=== PATIENT | female | born 1990 | race Caucasian/White ===

== ENCOUNTER → 2018-04-03 10:44 | Outpatient (CLI) | payer BC, SELFPAY ==
[2018-04-03 11:02] LABS: Basophils % 0.5 % (0.1-2.0); Eosinophils # 0.3 K/mm3 (0.0-0.4); Eosinophils % 4.8 % (0.1-12.0); Hematocrit 41.6 % (37.0-47.0); Hemoglobin 13.5 g/dL (12.2-16.2); Lymphocytes # 2.1 K/mm3 (0.7-4.5); Lymphocytes % 35.8 % (10-50); Mean Corpuscular HGB Conc 32.5 g/dL (31.8-35.4); Mean Corpuscular Volume 89.5 fl (81-99); Mean Platelet Volume 7.3 fl (7.4-10.4); Monocytes # 0.3 K/mm3 (0.1-1.0); Monocytes % 4.3 % (1.7-9.3); Neutrophils # 3.2 K/mm3 (1.8-7.8); Neutrophils % 54.7 % (37.0-80.0); Platelet Count 277 K/mm3 (142-424); Red Blood Count 4.65 M/mm3 (4.20-5.40); Red Cell Distribution Width 13.5 % (11.5-17.5); White Blood Count 5.9 K/mm3 (4.8-10.8)
[2018-04-03 12:07] LABS: Alanine Aminotransferase 66 U/L (12-78); Albumin Level 3.8 gm/dL (3.4-5.0); Albumin/Globulin Ratio 1.2 (1.1-1.8); Alkaline Phosphatase 93 U/L (46-116); Anion Gap 14.2 mEq/L (5-15); Aspartate Amino Transferase 24 U/L (15-37); Bilirubin,Total 0.5 mg/dL (0.2-1.0); Blood Urea Nitrogen 8 mg/dL (7-18); Calcium 8.7 mg/dL (8.5-10.1); Carbon Dioxide 26 mmol/L (21.0-32.0); Chloride 104 mmol/L (98-107); Creatinine,Serum 0.59 mg/dL (0.55-1.02); Estimated Glomerular Filt Rate 122 ml/min (>60); GFR (African American) 148 ML/MIN (>60); Globulin 3.2 gm/dl (1.3-3.2); Glucose 98 mg/dL (74-106); HCG,Quantitative 0 mIU/mL; Potassium 4.2 mmoL/L (3.5-5.1); Sodium 140 mmol/L (136-145); T4 (Thyroxine) 6.3 ug/dl (4.7-13.3); Thyroid Stimulating Hormone 1.19 uIU/ml (0.358-3.740)
[2018-04-03 12:08] LABS: HCG Qualitative, Serum Negative (Negative)
== END ==
PROVIDERS: Visit Provider Nurse Practitioner Family
DX: N91.2 Amenorrhea, unspecified (principal)
CPT/HCPCS: 36415; 80053; 84436; 84443; 84702; 84703; 85025

== ENCOUNTER → 2018-04-10 10:40 | Outpatient (CLI) | payer BC, SELFPAY ==
--- NOTE | 2018-04-10 10:42 | US_ITS ---
US transvaginal HISTORY: Amenorrhea ITS.REASON: absent period ORDERING PHYSICIAN: Mark Harrison PATIENT AGE: 27 years Comparison: None FINDINGS: Uterus is 9 x 3.5 x 5 cm with a combined endometrial thickness of 1 cm. No uterine mass evident. The left ovary is 3.7 x 2.4 cm and contains a 2 cm cyst The right ovary is 3.5 x 2 cm and contains multiple small peripheral follicles. No cul-de-sac fluid evident IMPRESSION: 2 cm left ovarian cyst with polycystic appearance of the right ovary
== END ==
PROVIDERS: PCP Nurse Practitioner Family; Visit Provider Nurse Practitioner Family
DX: N91.2 Amenorrhea, unspecified (principal)
CPT/HCPCS: 76830

== ENCOUNTER → 2018-04-23 18:09 | Outpatient (CLI) | payer BC, SELFPAY ==
[2018-04-23 20:11] LABS: Amphetamine/Metha Screen,Urine Negative ng/mL (<1000); Barbiturates Screen,Urine Negative ng/mL (<200); Benzodiazepines Screen,Urine Negative ng/mL (<200); Cannabinoid Screen,Urine Negative ng/mL (<50); Cocaine Screen,Urine Negative ng/mL (<300); Methadone Screen,Urine Negative ng/mL (<300); Opiate Screen,Urine Negative ng/mL (<300); Phencyclidine Screen,Urine Negative ng/mL (<25)
== END ==
PROVIDERS: Visit Provider Nurse Practitioner Family
DX: R68.89 Other general symptoms and signs (principal); Z79.899 Other long term (current) drug therapy
CPT/HCPCS: 80305

== ENCOUNTER → 2018-05-29 14:31 | Outpatient (CLI) | payer BC, SELFPAY ==
--- NOTE | 2018-05-29 14:35 | US_ITS ---
US breast RT complete INDICATION: Right breast pain ORDERING PHYSICIAN: Sharon Oreilly PATIENT AGE: 27 years COMPARISON: None TECHNIQUE: Right breast ultrasound complete with axilla FINDINGS: There is a complex cyst at 12:00 which measures 9 x 5 mm. A 6 x 4 mm cyst is present at 1:00. There is a 6 x 6 mm cyst at 4:00 near the nipple. A 6 mm cyst is present at 10:00 near the nipple. In the retroareolar region there is a 9 x 4 mm complex cyst. Small nodes are present in the axilla. IMPRESSION: Multiple right breasts complex cystic lesions. Probably benign. Recommend 6 month sonographic follow-up or immediate follow-up any nodules that are increasing in size BI-RADS Category: 3 Probably Benign Finding Short Term Follow-up RECOMMENDED FOLLOW-UP: 6M - 6 MONTH FOLLOW-UP (A letter has been sent to the patient regarding results of the study.)
== END ==
PROVIDERS: PCP Nurse Practitioner Family; Visit Provider Nurse Practitioner Family
DX: N64.4 Mastodynia (principal); N64.52 Nipple discharge
CPT/HCPCS: 76641

== ENCOUNTER → 2018-08-04 14:11 | Outpatient (CLI) | payer BC, SELFPAY ==
[2018-08-04 14:43] LABS: Amphetamine/Metha Screen,Urine Negative ng/mL (<1000); Barbiturates Screen,Urine Negative ng/mL (<200); Benzodiazepines Screen,Urine Negative ng/mL (<200); Cannabinoid Screen,Urine Negative ng/mL (<50); Cocaine Screen,Urine Negative ng/mL (<300); Methadone Screen,Urine Negative ng/mL (<300); Opiate Screen,Urine Negative ng/mL (<300); Phencyclidine Screen,Urine Negative ng/mL (<25)
== END ==
PROVIDERS: Visit Provider Nurse Practitioner Family
DX: Z79.899 Other long term (current) drug therapy (principal)
CPT/HCPCS: 80305

== ENCOUNTER → 2018-11-11 13:27 | Outpatient (CLI) | payer BC, SELFPAY ==
--- NOTE | 2018-11-11 13:28 | US_ITS ---
PROCEDURE: US BREAST RT COMPLETE CLINICAL INDICATION: 6 mth f/u Right breast pain, right breast complex cysts COMPARISON: BREASTRT US breast RT complete from 05/29/2018 FINDINGS: Complex cyst 9 x 5 mm at 12 o'clock unchanged Complex cyst 7 x 3 mm 1 o'clock slightly larger. 6 mm cyst at 5 o'clock unchanged Ductal ectasia at 9 o'clock versus several small cysts in a row slightly more prominent 5 mm cyst at 10 o'clock unchanged. No solid nodules evident IMPRESSION: Multiple right breast cysts which are probably benign. Some have a complex appearance. Recommend continued six-month follow-up Dictated by: Phillip Burns MD 11/13/2018 16:31 Electronically signed by Phillip Burns MD in [place] 11/13/2018 16:31
== END ==
PROVIDERS: PCP Nurse Practitioner Family; Visit Provider Nurse Practitioner Family
DX: N60.11 Diffuse cystic mastopathy of right breast (principal); N64.4 Mastodynia
CPT/HCPCS: 76641

== ENCOUNTER → 2018-12-01 18:17 | Outpatient (CLI) | payer BC, SELFPAY | PROVIDERS: Visit Provider Nurse Practitioner Family | DX: N39.0 Urinary tract infection, site not specified (principal) | CPT/HCPCS: 87086 ==

== ENCOUNTER → 2019-04-14 08:54 | Outpatient (CLI) | payer BC, SELFPAY ==
--- NOTE | 2019-04-14 08:54 | US_ITS ---
PROCEDURE: US ABDOMEN COMPLETE CLINICAL INDICATION: abd pain Left-sided abdominal pain COMPARISON: No exams were available for comparison FINDINGS: PANCREAS: Unremarkable. No obvious mass or abnormal fluid collection. No ductal dilatation LIVER: No focal liver lesions demonstrated. Homogeneous echogenicity. No intrahepatic biliary ductal dilatation evident. There is appropriate direction of blood flow within a non dilated portal vein RIGHT KIDNEY: Unremarkable. Normal size and echogenicity. No hydronephrosis LEFT KIDNEY: Unremarkable. Normal size and echogenicity. No hydronephrosis GALLBLADDER: No gallstones, gallbladder wall thickening, pericholecystic fluid, or biliary dilatation. There is a small amount nonspecific sludge in the gallbladder AORTA: No evidence of aneurysmal dilatation. SPLEEN: Unremarkable. Normal size and echogenicity ASCITES: None demonstrated. IMPRESSION: Small amount of gallbladder sludge/precipitated bile of questionable clinical significance otherwise negative Dictated by: Phillip Burns MD 04/14/2019 18:15 Electronically signed by Phillip Burns MD in [facility] 04/14/2019 18:15
== END ==
PROVIDERS: PCP Nurse Practitioner Family; Visit Provider Nurse Practitioner Family
DX: R10.9 Unspecified abdominal pain (principal)
CPT/HCPCS: 76700

== ENCOUNTER → 2019-05-17 08:36 | Outpatient (CLI) | payer BC, SELFPAY ==
--- NOTE | 2019-05-17 08:36 | US_ITS ---
PROCEDURE: US BREAST RT COMPLETE CLINICAL INDICATION: 6 mth f/u Follow-up breast lesion COMPARISON: US BREAST RT COMPLETE from 11/11/2018 FINDINGS: At 12 o'clock there is a complicated cyst which measures 10 x 5 mm similar to the previous exam. There is an additional complicated cyst at 1 o'clock at 6 x 4 mm. A 5 x 3 mm cyst is present 5 o'clock. 5 x 4 mm cyst at 9 o'clock. Ductal ectasia is noted. A 5 x 4 mm cyst at 10 o'clock complicated IMPRESSION: Multiple complicated cysts with ductal ectasia. BI-RADS category 2 benign findings. Recommend 1 year follow-up Dictated by: Phillip Burns MD 05/17/2019 09:32 Electronically signed by Phillip Burns MD in [place] 05/17/2019 09:32
== END ==
PROVIDERS: PCP Nurse Practitioner Family; Visit Provider Emergency Medicine
DX: N60.01 Solitary cyst of right breast (principal)
CPT/HCPCS: 76641

== ENCOUNTER 2020-10-25 18:29 | Emergency (ER) | payer BC, SELFPAY ==
[2020-10-25 20:00] VITALS: BP 137/96; PULSE 79; RESP 18; TEMP 36.6; O2SAT 98; BMI 28.6
[2020-10-25 20:03] VITALS: BP 137/96; PULSE 79; RESP 18; TEMP 36.6
--- NOTE | 2020-10-25 20:21 | HMH.EDUTC ---
[facility] [place] Disposition Clinical Impression: Exposure to COVID-19 virus Disposition: Home, Self-Care Condition on Discharge: Good Instructions: DI for COVID-19 (Suspected or Confirmed ), Coronavirus Disease 2019, Preventing the Spread of Coronavirus Discharge Instructions Additional Instructions: *Monitor Temp, Over the counter Motrin or Tylenol as directed/as needed Tylenol every 4 hours and Motrin every 6 hours (as long as your family doctor has told you that you can take it) for fever or pain. and straight to ER if unable to lower temp less than 101.0 after medication given Follow up IMMEDIATELY for new or worsening symptoms or no Noticeable improvement over the next 48-72 hours. 911 for difficulty breathing or swallowing You were tested for today for COVID19 your test result should be back in the next 24-48 hours, you may call to the [facility] to see if your test results are back in the next 48 hours [phone] [facility] hours are 9am-9pm You was given a handout with instructions for Self Quarantine and Self isolation for while you wait on test results and what to do if they are positive If you are positive the Health Dept will be contacting you also Make sure to take your Vitamins Vit. C Vit D and Zinc if you can take them Referrals: Mark Harrison APRN [Primary Care Provider] - As needed Forms: Work/School Release Medical Decision Making - Galo Inquiry Pt receiving controlled substance: No Galo was queried for this patient: No Vital Signs: 10/25/20 20:00 10/25/20 20:03 Temperature 97.8 F 97.8 F Temperature Source Oral Pulse Rate 79 Pulse Rate [Left] 79 Respiratory Rate 18 18 Blood Pressure 137/96 H Blood Pressure [Right Arm] 137/96 H Blood Pressure Mean [Right Arm] 109 02 Sat by Pulse Oximetry 98 Orders (Tests/Meds): ORDERS Category Date Time Status Covid-19 Nasal PCR ([facility]) Routine Lab 10/25/20 19:40 Received [facility] [place] HPI - General Stated complaint: covid test Time Seen by Provider: 10/25/20 20:21 Mode of Arrival: Ambulatory Source of Information: Patient Limitations: No Limitations Description of Symptoms (Recalled from Triage Doc. by RN): pt is asymptomatic. 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 HEENT Symptoms (Recalled from RN notes): No Resp Symptoms (Recalled from RN notes): No Skin Symptoms (Recalled from RN notes): No MS Symptoms (Recalled from RN notes): No Functional Status (Recalled from RN notes): na - History of Present Illness Provider Complaint: Patient states that she was around enterprise account manager at work and she tested positive for COVID recently State that today she has had a little headache and scratchy throat and was worried and wanted to get tested Denies fever, denies SOA - Related Data Allergies Allergy/AdvReac Type Severity Reaction Status Date / Time No Known Allergies Allergy Verified 10/20/20 16:10 - Worker's Comp Is this a Worker's Comp case?: No [facility] History - Hepatitis A Screen Drug use history?: No High risk sexual behaviors?: No History of sexually transmitted infection?: No Currently employed?: No Childcare worker?: No Do you have indoor plumbing?: Yes Do you have electricity?: Yes Attestation statement:: This patient has been screened for Hepatitis A risk factors. I have reviewed the patient's past medical history: Yes Other Surgeries: Yes: Amputation: No Fractures: No - Social History Smoking Status: Former smoker Tobacco Type: cigarettes # Packs/Day (cigarettes): 1 #Yrs smoked (if former smoker): 1 Alcohol Intake: never Alcohol Intake Frequency:: other Substance Use Type: denies use Occupational Status: employed Family Hx:: Diabetes, Heart Attack, Stroke, Hypertension ROS Obtained: Yes All systems reviewed & no additional complaints, Yes Systems reviewed as appropriate & no additional complaints - Constitutional Constitutional: Reports system reviewed and no additional complaints, except as docu, Denies body ache,
== END 2020-10-25 20:25 | disposition home or self-care (01) ==
PROVIDERS: Emergency Provider Nurse Practitioner; PCP Nurse Practitioner Family
DX: Z20.822 Contact with and (suspected) exposure to COVID-19 (principal); J02.9 Acute pharyngitis, unspecified; Z87.891 Personal history of nicotine dependence
CPT/HCPCS: 99202; G0463; U0003

== ENCOUNTER → 2021-03-23 14:35 | Outpatient (CLI) | payer BC, SELFPAY | PROVIDERS: Visit Provider Nurse Practitioner | DX: U07.1 COVID-19 (principal) | CPT/HCPCS: C9803; U0003; U0005 ==

== ENCOUNTER 2021-05-24 19:27 | Emergency (ER) | payer BC, SELFPAY ==
[2021-05-24 21:15] VITALS: BP 118/76; PULSE 76; RESP 18; TEMP 36.8; O2SAT 100; BMI 29.0
[2021-05-24 21:35] LABS: Strep Scrn Group A (Rapid) Negative (Negative)
--- NOTE | 2021-05-24 21:40 | HMH.EDUTC ---
[facility] – [place] Disposition Clinical Impression: Viral upper respiratory tract infection with cough Disposition: Home, Self-Care Condition on Discharge: Good Instructions: Cough, DI for Viral Upper Respiratory Infection -- Adult, Common Cold Additional Instructions: *Monitor Temp, Over the counter Motrin or Tylenol as directed/as needed Tylenol every 4 hours and Motrin every 6 hours (as long as your family doctor has told you that you can take it) for fever or pain. and straight to ER if unable to lower temp less than 101.0 after medication given *Warm salt water gargles may help to soothe the throat *Throat Lozenges *Warm fluids like tea with honey may help to soothe the throat *Sleep elevated *Humidifier/Vaporizer Your throat swab was sent for culture. Those results are typically sent to your primary care. Be sure to follow up in 2-3 days with your family doctor/primary care physician if no improvement so they can review those result and treat if necessary. If you don?t have a primary care doctor, I recommend you get one but in the mean time, you will have to return to a walk in clinic Follow up IMMEDIATELY for new or worsening symptoms or no Noticeable improvement over the next 48-72 hours. 911 for difficulty breathing or swallowing Referrals: Mark Harrison APRN [Primary Care Provider] - As needed Time of Disposition: 21:56 Medical Decision Making - Galo Inquiry Pt receiving controlled substance: No Galo was queried for this patient: No Vital Signs: 05/24/21 21:15 Temperature 98.2 F Temperature Source Oral Pulse Rate [Right Brachial] 76 Respiratory Rate 18 Blood Pressure [Right Arm] 118/76 Blood Pressure Mean [Right Arm] 90 Blood Pressure Source [Right Arm] Automatic Cuff Blood Pressure Position [Right Arm] Sitting 02 Sat by Pulse Oximetry 100 Oxygen Delivery Method Room Air - Lab Data Lab results reviewed: Yes: I reviewed the patient's lab results. Lab Results 05/24/21 21:16: Group A Strep Rapid Negative Orders (Tests/Meds): ORDERS Category Date Time Status Strep Screen Confirmation Stat Micro 05/24/21 21:16 Received [facility] [place] HPI - General Stated complaint: SORE THROAT COUGH CONGESTION Time Seen by Provider: 05/24/21 21:40 Mode of Arrival: Ambulatory Source of Information: Patient Limitations: No Limitations Description of Symptoms (Recalled from Triage Doc. by RN): PATIENT C/O SORE THROAT AND COUGH HEENT Symptoms (Recalled from RN notes): Yes Resp Symptoms (Recalled from RN notes): Yes Skin Symptoms (Recalled from RN notes): No MS Symptoms (Recalled from RN notes): No Functional Status (Recalled from RN notes): WNL - History of Present Illness Provider Complaint: Patient state that son recently had strep throat and now she thinks she may have it State that she has been having cough and sore throat so she came in wanting to get tested for strep throat - Related Data Allergies Allergy/AdvReac Type Severity Reaction Status Date / Time No Known Allergies Allergy Verified 03/18/21 17:05 - Worker's Comp Is this a Worker's Comp case?: No [facility] History - Hepatitis A Screen Drug use history?: No High risk sexual behaviors?: No History of sexually transmitted infection?: No Currently employed?: No Childcare worker?: No Do you have indoor plumbing?: Yes Do you have electricity?: Yes Attestation statement:: This patient has been screened for Hepatitis A risk factors. I have reviewed the patient's past medical history: Yes Other Surgeries: Yes: Amputation: No Fractures: No - Social History Smoking Status: Former smoker Tobacco Type: cigarettes # Packs/Day (cigarettes): 1 #Yrs smoked (if former smoker): 1 Alcohol Intake: never Alcohol Intake Frequency:: holidays/special occasions only Substance Use Type: denies use Occupational Status: employed Family Hx:: Diabetes, Heart Attack, Stroke, Hypertension ROS Obtained: Yes All systems reviewed & no additional co
[2021-05-24 21:55] VITALS: BP 118/76; PULSE 76; RESP 18; TEMP 36.8; O2SAT 100
== END 2021-05-24 22:02 | disposition home or self-care (01) ==
PROVIDERS: Emergency Provider Nurse Practitioner; PCP Nurse Practitioner Family
DX: J06.9 Acute upper respiratory infection, unspecified (principal); Z87.891 Personal history of nicotine dependence; Z82.49 Family history of ischemic heart disease and other diseases of the circulatory system; Z83.3 Family history of diabetes mellitus
CPT/HCPCS: 87430; 99213; G0463

== ENCOUNTER → 2021-05-28 16:00 | Outpatient (CLI) | payer BC, SELFPAY ==
[2021-05-28 14:59] LABS: Basophils # 0.1 K/mm3 (0-0.2); Eosinophils # 0.2 K/mm3 (0.0-0.4); Eosinophils % 4.5 % (0.1-12.0); Hematocrit 40.4 % (37.0-47.0); Hemoglobin 13.6 g/dL (12.2-16.2); Lymphocytes # 1.9 K/mm3 (0.7-4.5); Lymphocytes % 34.9 % (10-50); Mean Corpuscular HGB Conc 33.6 g/dL (31.8-35.4); Mean Corpuscular Hemoglobin 29.9 pg (27.0-31.2); Mean Corpuscular Volume 89.2 fl (81-99); Mean Platelet Volume 8.5 fl (7.4-10.4); Monocytes # 0.2 K/mm3 (0.1-1.0); Monocytes % 3.8 % (1.7-9.3); Neutrophils % 55.7 % (37.0-80.0); Platelet Count 402 K/mm3 (142-424); Red Blood Count 4.53 M/mm3 (4.20-5.40); Red Cell Distribution Width 13.3 % (11.5-17.5); White Blood Count 5.3 K/mm3 (4.8-10.8)
[2021-05-28 16:30] LABS: Alanine Aminotransferase 17 U/L (12-78); Albumin Level 4.3 g/dl (3.5-5.0); Albumin/Globulin Ratio 1.6 (1.1-1.8); Alkaline Phosphatase 87 U/L (38-126); Anion Gap 11.5 mEq/L (5-15); Aspartate Amino Transferase 22 U/L (14-36); Bilirubin,Total 0.5 mg/dl (0.2-1.3); Blood Urea Nitrogen 15 mg/dl (7-17); Calcium 9.1 mg/dl (8.4-10.2); Carbon Dioxide 26 mmol/L (22.0-30.0); Chloride 107 mmol/L (98-107); Chol/HDL Ratio 7.1 (1-3.5); Cholesterol 178 mg/dl (140-200); Estimated Glomerular Filt Rate 117 ml/min (>60); GFR (African American) 142 ML/MIN (>60); Globulin 2.7 g/dL (1.3-3.2); Glucose 104 mg/dl (74-100); HDL Cholesterol 25 mg/dl (40-60); Potassium 4.5 mmoL/L (3.5-5.1); Sodium 140 mmol/L (136-145); Triglycerides 383 mg/dl (30-150); VLDL Cholesterol 77 mg/dL (0-40)
[2021-05-28 16:35] LABS: 25-OH Vitamin D, Total < 12.8 ng/mL (30-100)
[2021-05-28 16:42] LABS: Direct LDL Cholesterol 88.87 mg/dL (100-129)
[2021-05-28 16:48] LABS: T4 (Thyroxine) 6.5 ug/dl (5.53-11.0)
[2021-05-28 17:19] LABS: Thyroid Stimulating Hormone 0.82 uIU/mL (0.465-4.68)
== END ==
PROVIDERS: Visit Provider Nurse Practitioner Family
DX: Z00.00 Encounter for general adult medical examination without abnormal findings (principal); E66.3 Overweight; Z68.33 Body mass index [BMI] 33.0-33.9, adult
CPT/HCPCS: 80053; 80061; 82306; 84436; 84443; 85025

== ENCOUNTER → 2021-06-20 10:11 | Outpatient (CLI) | payer BC, SELFPAY | PROVIDERS: PCP Emergency Medicine; Visit Provider Nurse Practitioner Family | DX: Z01.818 Encounter for other preprocedural examination (principal); B96.20 Unspecified Escherichia coli [E. coli] as the cause of diseases classified elsewhere | CPT/HCPCS: 87086; 87088; 87186 ==

== ENCOUNTER → 2021-06-21 18:30 | Outpatient (CLI) | payer BC, SELFPAY ==
--- NOTE | 2021-06-21 18:50 | ECG_ITS ---
APPROVED REPORT Exam: Resting ECG HR:64 bpm ECG Measurements Heart Rate 64 AXES SD 163 P 46 QRSd 91 QRS 55 QT 383 T 84 QTc 392 Conclusion SINUS RHYTHM NORMAL ECG UNCONFIRMED REPORT Electronically signed by : Hamzah Vital MD 06/23/2021 12:19:45
--- NOTE | 2021-06-21 18:57 | XR_ITS ---
PROCEDURE INFORMATION: Exam: XR Chest Exam date and time: 06/21/2021 6:59 PM Age: 30 years old Clinical indication: Screening exam; Pre-operative exam; Cardiovascular screening; Additional info: Pre-op surgery. TECHNIQUE: Imaging protocol: XR of the chest. Views: 2 views. COMPARISON: CR CXR CHEST(2 VIEWS-NOT PORTABLE) 08/22/2016 4:55 PM FINDINGS: Lungs: Unremarkable. No consolidation. Pleural spaces: Unremarkable. No pleural effusion. No pneumothorax. Heart/Mediastinum: Unremarkable. No cardiomegaly. Bones/joints: Unremarkable. IMPRESSION: No acute findings.
== END ==
PROVIDERS: PCP Nurse Practitioner Family; Visit Provider Plastic Surgery
DX: Z01.818 Encounter for other preprocedural examination (principal)
CPT/HCPCS: 71046; 93005

== ENCOUNTER → 2021-06-25 08:02 | Outpatient (CLI) | payer BC, SELFPAY ==
--- NOTE | 2021-06-25 08:05 | US_ITS ---
FINAL REPORT CLINICAL HISTORY: R/O UMBILICAL HERNIA,CHECK ABD WALL preop clearance for tummy tuck FINDINGS: US ABDOMINAL LIMITED Limited sonographic images were obtained of the soft tissues at the level of the umbilicus. No hernia is visualized. IMPRESSION: No hernia visualized. If concern persists recommend CT. Reviewed, Interpreted and Dictated by Jomar Washington MD Transcribed by Brad Vicente Authenticated by Jomar Washington MD on 06/25/2021 10:31:43 AM [facility]
== END ==
PROVIDERS: PCP Nurse Practitioner Family; Visit Provider Plastic Surgery
DX: Z01.818 Encounter for other preprocedural examination (principal); K42.9 Umbilical hernia without obstruction or gangrene
CPT/HCPCS: 76705

== ENCOUNTER 2021-06-27 09:21 | Emergency (ER) | payer BC, SELFPAY ==
[2021-06-27 09:49] VITALS: BP 149/74; PULSE 67; RESP 20; TEMP 36.7; O2SAT 95; BMI 32.5
[2021-06-27 10:06] LABS: UTC Influenza A Antigen Negative (Negative); UTC Influenza B Antigen Negative (Negative)
[2021-06-27 10:33] LABS: Strep Scrn Group A (Rapid) Negative (Negative)
--- NOTE | 2021-06-27 10:52 | HMH.EDUTC ---
[facility] [place] Disposition Clinical Impression: Viral syndrome, Pharyngitis, Bronchitis Disposition: Home, Self-Care Condition on Discharge: Good Instructions: DI for Pharyngitis/Tonsillopharyngitis -- Adult, DI for Viral Syndrome Additional Instructions: Drink plenty of fluids. Take tylenol or ibuprofen for pain or fever. Take the medications as directed. Follow up with your regular doctor. GO TO THE ER FOR ANY WORSENING SYMPTOMS Prescriptions: Benzonatate [Benzonatate 100mg cap] 100 mg PO TIDP PRN #30 cap PRN Reason: Cough Transmission Status: Received by [facility] # Azithromycin [Z-Baljit 250mg Tab*] 250 mg PO UD DOSE PK #6 tab Transmission Status: Received by [facility] # Referrals: Mark Harrison APRN [Primary Care Provider] - Forms: Work/School Release Time of Disposition: 10:54 Medical Decision Making - Medical Records Medical records reviewed: No: I reviewed the patient's medical records. - Galo Inquiry Pt receiving controlled substance: No Vital Signs: 06/27/21 09:49 06/27/21 11:00 Temperature 98.0 F 98 F Temperature Source Oral Pulse Rate 67 Pulse Rate [Left] 67 Respiratory Rate 20 20 Blood Pressure 149/74 H Blood Pressure [Right Arm] 149/74 H Blood Pressure Mean [Right Arm] 99 02 Sat by Pulse Oximetry 95 - Lab Data Lab Results 06/27/21 09:44: Influenza Type A Ag Negative, Influenza Type B Ag Negative 06/27/21 09:46: Group A Strep Rapid Negative 06/27/21 11:12: Chlamy pneumoniae PCR Not detected, Adenovirus (PCR) Not detected, B. pertussis DNA (PCR) Not detected, Coronavirus OC43 (PCR) Not detected, Coronavirus HKU1 (PCR) Not detected, Coronavirus 229E (PCR) Not detected, SARS-CoV-2 (PCR) Not detected, Coronavirus NL63 (PCR) Not detected, Human Metapneumovir PCR Not detected, Influenza A (H1) PCR Not detected, Influ A (H1N1/09) PCR Not detected, Influenza A (H3) PCR Not detected, Influenza Type A (PCR) Not detected, Influenza Type B (PCR) Not detected, M. pneumoniae (PCR) Not detected, Parainfluenza 1 (PCR) Not detected, Parainfluenza 2 (PCR) Not detected, Parainfluenza 3 (PCR) Not detected, Parainfluenza 4 (PCR) Not detected, RSV (PCR) Not detected, Entero/Rhino (PCR) Not detected Orders (Tests/Meds): ORDERS Category Date Time Status Strep Screen Confirmation Stat Micro 06/27/21 09:46 Received [facility] [place] HPI - General Stated complaint: cough,sore throat Time Seen by Provider: 06/27/21 10:00 Mode of Arrival: Ambulatory Source of Information: Patient Limitations: No Limitations Description of Symptoms (Recalled from Triage Doc. by RN): pt c/o cough and sore throat that started 3 days ago. pt states that she has had no known sick contacts. HEENT Symptoms (Recalled from RN notes): Yes Resp Symptoms (Recalled from RN notes): Yes Skin Symptoms (Recalled from RN notes): No MS Symptoms (Recalled from RN notes): No Functional Status (Recalled from RN notes): wnl - History of Present Illness Provider Complaint: She c/o sore throat and malaise for the past 2 days. - Related Data Previous Rx's Medication Instructions Recorded ergocalciferol (vitamin D2) 1,250 50,000 unit PO QWEEK #12 cap 05/31/21 mcg (50,000 unit) capsule levofloxacin 500 mg tablet 500 mg PO DAILY #7 tab 06/22/21 Azithromycin [Z-Baljit 250mg Tab*] 250 mg PO UD DOSE PK #6 tab 06/27/21 Benzonatate [Benzonatate 100mg 100 mg PO TIDP PRN #30 cap 06/27/21 cap] Allergies Allergy/AdvReac Type Severity Reaction Status Date / Time No Known Allergies Allergy Verified 06/27/21 10:00 - Worker's Comp Is this a Worker's Comp case?: No [facility] History - Hepatitis A Screen Drug use history?: No High risk sexual behaviors?: No History of sexually transmitted infection?: No Currently employed?: No Childcare worker?: No Do you have indoor plumbing?: Yes Do you have electricity?: Yes Attestation statement:: This patient has been screened for Hepatitis A ris
[2021-06-27 11:00] VITALS: BP 149/74; PULSE 67; RESP 20; TEMP 36.6
[2021-06-27 11:30] LABS: Adenovirus,PCR Not Detected (NotDetected); Bordetella Pertussis Not Detected (NotDetected); Chlamydophila Pneumoniae, PCR Not Detected (NotDetected); Coronavirus 19, PCR Not Detected (NotDetected); Coronavirus 229E Not Detected (NotDetected); Coronavirus NL63 Not Detected (NotDetected); Coronavirus OC43 Not Detected (NotDetected); Coronovirus HKU1,PCR Not Detected (NotDetected); Human Metapneumovirus Not Detected (NotDetected); Influenza A, PCR Not Detected (NotDetected); Influenza AH1, 2009 Not Detected (NotDetected); Influenza AH1, PCR Not Detected (NotDetected); Influenza AH3,PCR Not Detected (NotDetected); Influenza B, PCR Not Detected (NotDetected); Mycoplasma Pneumoniae, PCR Not Detected (NotDetected); Parainfluenza 1, PCR Not Detected (NotDetected); Parainfluenza 2, PCR Not Detected (NotDetected); Parainfluenza 3, PCR Not Detected (NotDetected); Parainfluenza 4, PCR Not Detected (NotDetected); Respiratory Syncytial Virus Not Detected (NotDetected); Rhinovirus/Enterovirus Not Detected (NotDetected)
== END 2021-06-27 11:21 | disposition home or self-care (01) ==
PROVIDERS: Emergency Provider Nurse Practitioner Family; PCP Nurse Practitioner Family
DX: J02.9 Acute pharyngitis, unspecified (principal); B34.9 Viral infection, unspecified; Z20.822 Contact with and (suspected) exposure to COVID-19; Z79.899 Other long term (current) drug therapy; Z87.891 Personal history of nicotine dependence; Z82.49 Family history of ischemic heart disease and other diseases of the circulatory system; Z83.3 Family history of diabetes mellitus
CPT/HCPCS: 87430; 87581; 87632; 87798; 87804; 99213; C9803; G0463; U0003; U0005

== ENCOUNTER 2021-07-15 11:27 | Emergency (ER) | payer BC, SELFPAY ==
[2021-07-15] VITALS (7 sets, daily range): BP systolic 126–149; BP diastolic 82–94; PULSE 67–84; RESP 20–22; TEMP 36.9; O2SAT 91–98; BMI 31.8
--- NOTE | 2021-07-15 11:19 | ECG_ITS ---
APPROVED REPORT Exam: Resting ECG HR:82 bpm ECG Measurements Heart Rate 82 AXES VT 156 P 60 QRSd 85 QRS 70 QT 366 T 75 QTc 404 Conclusion SINUS RHYTHM NONSPECIFIC T-WAVE ABNORMALITY BORDERLINE ECG UNCONFIRMED REPORT Electronically signed by : Hamzah Vital MD 07/16/2021 15:49:30
--- NOTE | 2021-07-15 11:27 | HMH.EDGENADL ---
ED Disposition Clinical Impression: Seasonal allergies Reactive airway disease Qualifiers: Asthma severity: mild Asthma persistence: intermittent Asthma complication type: with acute exacerbation Qualified Code(s): J45.21 - Mild intermittent asthma with (acute) exacerbation Disposition: Home, Self-Care Condition on Discharge: Good Instructions: The Connection Between Allergies and Asthma, DI for Asthma -- Adult Additional Instructions: Use inhaler, 2 puffs 4 times a day as needed for wheezing and shortness of breath. Prednisone as prescribed. Take Claritin for allergies. Follow-up with primary care provider this week, call for appointment. He will be called with results of your COVID/flu test. Prescriptions: predniSONE [Prednisone 20mg Tab] 20 mg PO BID #10 tab Transmission Status: Received by [id number] Referrals: Provider,Referral, [Referring] - - Critical Care Critical Care Time: No Attestation: On , the high probability of a clinically significant, sudden or life threatening deterioration of the following system(s) required my full and direct attention, intervention and personal management. The time I documented below is in addition to time spent performing reported procedures but includes the following listed in this critical care notation. Medical Decision Making - Galo Inquiry Pt receiving controlled substance: No Vital Signs: 07/15/21 11:27 07/15/21 11:32 07/15/21 12:00 Temperature 98.5 F Temperature Source Oral Pulse Rate 70 67 Pulse Rate [Left Radial] 77 Respiratory Rate 21 20 20 Blood Pressure 133/82 126/85 Blood Pressure [Right Arm] 149/89 H Blood Pressure Mean 93 Blood Pressure Mean [Right Arm] 109 Blood Pressure Source [Right Arm] Automatic Cuff Blood Pressure Position [Right Arm] Sitting 02 Sat by Pulse Oximetry 94 L 91 L 94 L Oxygen Delivery Method Room Air 07/15/21 12:23 07/15/21 12:30 07/15/21 13:00 Temperature Temperature Source Pulse Rate 74 84 80 Pulse Rate [Left Radial] Respiratory Rate 22 21 Blood Pressure 128/83 141/94 H Blood Pressure [Right Arm] Blood Pressure Mean 101 106 Blood Pressure Mean [Right Arm] Blood Pressure Source [Right Arm] Blood Pressure Position [Right Arm] 02 Sat by Pulse Oximetry 98 96 Oxygen Delivery Method 07/15/21 13:10 Temperature 98.5 F Temperature Source Pulse Rate 80 Pulse Rate [Left Radial] Respiratory Rate 21 Blood Pressure 141/94 H Blood Pressure [Right Arm] Blood Pressure Mean Blood Pressure Mean [Right Arm] Blood Pressure Source [Right Arm] Blood Pressure Position [Right Arm] 02 Sat by Pulse Oximetry Oxygen Delivery Method Room Air - Lab Data Lab Results 07/15/21 11:19: WBC 9.1, RBC 4.79, Hgb 14.2, Hct 41.0, MCV 85.5, MCH 29.6, MCHC 34.6, RDW 13.5, Plt Count 354, MPV 7.5, Neut % (Auto) 64.7, Lymph % (Auto) 23.6, Irwin % (Auto) 3.4, Eos % (Auto) 6.7, Baso % (Auto) 1.7, Neut # (Auto) 5.9, Lymph # (Auto) 2.2, Irwin # (Auto) 0.3, Eos # (Auto) 0.6 H, Baso # (Auto) 0.2 07/15/21 11:19: Sodium 139, Potassium 3.9, Chloride 104, Carbon Dioxide 29, Anion Gap 9.9, BUN 9, Creatinine 0.60, Estimated Creat Clear 171, Estimated GFR 117, Est GFR ( Amer) 142, Glucose 117 H, Calcium 9.0, Troponin I < 0.01 07/15/21 13:09: SARS-CoV-2 (PCR) Not detected, Influenza A Untype (PCR) Not detected, Influenza Type B (PCR) Not detected Result diagrams: 07/15/21 11:19 07/15/21 11:19 Orders (Tests/Meds): ED MEDICATIONS Discontinued Medications Generic Name Dose Route Start Last Admin Trade Name Freq PRN Reason Stop Dose Admin Albuterol Sulfate 2 puff 07/15/21 13:10 07/15/21 13:12 Albuterol-Hfa 90mcg/Puff Inhaler 8gm IH 08/14/21 13:09 2 puff Q6HP PRN Administration Shortness Of Breath Albuterol/Ipratropium 3 ml 07/15/21 11:45 07/15/21 12:22 Ipratropium/Albuterol 3 Ml Neb IH 07/15/21 11:46 3 ml ONCE ONE Administration Met
--- NOTE | 2021-07-15 11:30 | XR_ITS ---
PROCEDURE INFORMATION: Exam: XR Chest Exam date and time: 07/15/2021 11:38 AM Age: 30 years old Clinical indication: Cough; Additional info: Chest pain/cough TECHNIQUE: Imaging protocol: XR of the chest. Views: 2 views. COMPARISON: CR XR CHEST 2V 06/21/2021 6:59 PM FINDINGS: Lungs: Unremarkable. No consolidation. Pleural spaces: Unremarkable. No pleural effusion. No pneumothorax. Heart/Mediastinum: Unremarkable. No cardiomegaly. Bones/joints: Unremarkable. IMPRESSION: No acute findings.
[2021-07-15 11:38] LABS: Basophils # 0.2 K/mm3 (0-0.2); Basophils % 1.7 % (0.1-2.0); Eosinophils # 0.6 K/mm3 (0.0-0.4); Eosinophils % 6.7 % (0.1-12.0); Hemoglobin 14.2 g/dL (12.2-16.2); Lymphocytes # 2.2 K/mm3 (0.7-4.5); Lymphocytes % 23.6 % (10-50); Mean Corpuscular HGB Conc 34.6 g/dL (31.8-35.4); Mean Corpuscular Hemoglobin 29.6 pg (27.0-31.2); Mean Corpuscular Volume 85.5 fl (81-99); Mean Platelet Volume 7.5 fl (7.4-10.4); Monocytes # 0.3 K/mm3 (0.1-1.0); Monocytes % 3.4 % (1.7-9.3); Neutrophils # 5.9 K/mm3 (1.8-7.8); Neutrophils % 64.7 % (37.0-80.0); Platelet Count 354 K/mm3 (142-424); Red Blood Count 4.79 M/mm3 (4.20-5.40); Red Cell Distribution Width 13.5 % (11.5-17.5); White Blood Count 9.1 K/mm3 (4.8-10.8)
--- NOTE | 2021-07-15 11:41 | PC.NURSE ---
ED MD at
[2021-07-15 11:45] LABS: Chloride 104 mmol/L (98-107); Sodium 139 mmol/L (136-145)
[2021-07-15 11:46] LABS: Potassium 3.9 mmoL/L (3.5-5.1)
[2021-07-15 11:48] LABS: Blood Urea Nitrogen 9 mg/dl (7-17); Creatinine Clearance Estimated 171 mL/min (50-200); Estimated Glomerular Filt Rate 117 ml/min (>60); GFR (African American) 142 ML/MIN (>60)
[2021-07-15 11:49] LABS: Anion Gap 9.9 mEq/L (5-15); Carbon Dioxide 29 mmol/L (22.0-30.0); Glucose 117 mg/dl (74-100)
--- NOTE | 2021-07-15 11:50 | PC.NURSE ---
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
--- NOTE | 2021-07-15 11:55 | PC.NURSE ---
patient returned from radiology by wheelchair with mechanical engineering technician; no comlpications
[2021-07-15 12:04] LABS: Troponin I < 0.01 ng/ml (0.00-0.034)
--- NOTE | 2021-07-15 13:11 | PC.NURSE ---
tech obtained genevieve dawn; in room to discuss DC
[2021-07-15 13:14] LABS: Coronavirus 19, PCR Not Detected (NotDetected); Influenza A, PCR Not Detected (NotDetected); Influenza B, PCR Not Detected (NotDetected)
== END 2021-07-15 13:26 | disposition home or self-care (01) ==
PROVIDERS: Emergency Provider Emergency Medicine; PCP Nurse Practitioner Family
DX: J45.21 Mild intermittent asthma with (acute) exacerbation (principal)
CPT/HCPCS: 71046; 80048; 84484; 85025; 93005; 99283; C9803; U0003; U0005

== ENCOUNTER → 2021-07-18 10:15 | Outpatient (CLI) | payer BC, SELFPAY ==
[2021-07-18 10:21] LABS: Microscopic, Urine URINE MICROSCOPIC (MICROSCOPIC)
[2021-07-18 10:41] LABS: Appearance,Urine CLEAR (Clear); Basophils # 0.1 K/mm3 (0-0.2); Basophils % 0.7 % (0.1-2.0); Bilirubin,Urine Negative (Negative); Blood, Urine Negative (Negative); Color,Urine YELLOW (Yellow); Eosinophils # 0.6 K/mm3 (0.0-0.4); Eosinophils % 7.7 % (0.1-12.0); Glucose,Urine (UA) Negative (Negative); Hematocrit 39.8 % (37.0-47.0); Hemoglobin 13.1 g/dL (12.2-16.2); Ketones,Urine Negative (Negative); Leukocyte Esterase,Urine Negative (Negative); Lymphocytes # 2.5 K/mm3 (0.7-4.5); Lymphocytes % 34.1 % (10-50); Mean Corpuscular Hemoglobin 29.2 pg (27.0-31.2); Mean Corpuscular Volume 88.6 fl (81-99); Mean Platelet Volume 7.5 fl (7.4-10.4); Monocytes # 0.3 K/mm3 (0.1-1.0); Monocytes % 4.3 % (1.7-9.3); Neutrophils # 3.9 K/mm3 (1.8-7.8); Neutrophils % 53.1 % (37.0-80.0); Nitrate,Urine Negative (Negative); Platelet Count 332 K/mm3 (142-424); Protein,Urine Negative (Negative); Red Blood Count 4.49 M/mm3 (4.20-5.40); Red Cell Distribution Width 13.8 % (11.5-17.5); Urobilinogen,Urine 0.2 EU/dl (0.2); White Blood Count 7.4 K/mm3 (4.8-10.8)
[2021-07-18 10:48] LABS: Activated Partial Thrombo Time 32.2 seconds (22.8-30.6); Prothrombin Time 11.3 seconds (10.1-12.5)
[2021-07-18 10:59] LABS: Chloride 106 mmol/L (98-107); HCG Qualitative, Serum Negative (Negative); Potassium 4.4 mmoL/L (3.5-5.1); Sodium 138 mmol/L (136-145)
[2021-07-18 11:01] LABS: Blood Urea Nitrogen 10 mg/dl (7-17); Estimated Glomerular Filt Rate 145 ml/min (>60); GFR (African American) 175 ML/MIN (>60)
[2021-07-18 11:02] LABS: Alanine Aminotransferase 16 U/L (12-78); Albumin Level 3.9 g/dl (3.5-5.0); Albumin/Globulin Ratio 1.4 (1.1-1.8); Alkaline Phosphatase 77 U/L (38-126); Anion Gap 8.4 mEq/L (5-15); Aspartate Amino Transferase 19 U/L (14-36); Bilirubin,Total 0.3 mg/dl (0.2-1.3); Carbon Dioxide 28 mmol/L (22.0-30.0); Globulin 2.7 g/dL (1.3-3.2); Glucose 111 mg/dl (74-100); Total Protein,Serum 6.6 g/dl (6.3-8.2)
[2021-07-18 11:27] LABS: Bacteria,Urine 1+ /lpf
== END ==
PROVIDERS: Visit Provider Plastic Surgery
DX: Z01.818 Encounter for other preprocedural examination (principal)
CPT/HCPCS: 36415; 80053; 81001; 84703; 85025; 85610; 85730

== ENCOUNTER → 2021-07-24 16:28 | Outpatient (CLI) | payer BC, SELFPAY | PROVIDERS: PCP Family Medicine; Visit Provider Family Medicine | DX: Z87.440 Personal history of urinary (tract) infections (principal); B96.20 Unspecified Escherichia coli [E. coli] as the cause of diseases classified elsewhere | CPT/HCPCS: 87086; 87088; 87186 ==

== ENCOUNTER → 2021-08-07 19:21 | Outpatient (CLI) | payer BC, SELFPAY | PROVIDERS: PCP Nurse Practitioner Family; Visit Provider Plastic Surgery | DX: Z01.818 Encounter for other preprocedural examination (principal); Z20.822 Contact with and (suspected) exposure to COVID-19 | CPT/HCPCS: C9803; U0003; U0005 ==

== ENCOUNTER 2021-09-06 17:59 | Emergency (ER) | payer BC, SELFPAY ==
--- NOTE | 2021-09-06 18:44 | HMH.EDUTC ---
[facility] [place] Clinical Impression: Viral syndrome, Exposure to COVID-19 virus, Drainage from surgical wound Disposition: Home, Self-Care Condition on Discharge: Good Instructions: DI for Wound Infection, DI for COVID-19 (Suspected or Confirmed ), Preventing the Spread of Coronavirus Discharge Instructions Additional Instructions: Drink plenty of fluids. Take tylenol or ibuprofen for pain or fever. Take the medications as directed. Follow up with your regular doctor. GO TO THE ER FOR ANY WORSENING SYMPTOMS Quarantine until you know the results of your covid-19 test. Notify your school or workplace of your results and follow their instructions regarding return to work/school. Follow up with your surgeon that did your surgery. Wally them in the morning and let them know what's going on. Prescriptions: Sulfamethoxazole/Trimethoprim [Bactrim DS tablet] 1 each PO BID 10 Days #20 tab Transmission Status: Received by [id number] Mupirocin [Bactroban 2% Ointment 22gm tube] 1 applicatio TP TID 7 Days #1 gm Transmission Status: Received by [id number] cephALEXin [cephALEXin 500mg capsule] 500 mg PO Q6H 10 Days #40 cap Transmission Status: Received by [id number] Referrals: Darrell Giles MD [Primary Care Provider] - Forms: Work/School Release Time of Disposition: 19:35 Medical Decision Making - Medical Records Medical records reviewed: No: I reviewed the patient's medical records. - Galo Inquiry Pt receiving controlled substance: No Vital Signs: 09/06/21 18:48 09/06/21 19:37 Temperature 99.6 F 99.6 F Temperature Source Oral Pulse Rate 76 Pulse Rate [Left] 76 Respiratory Rate 17 17 Blood Pressure 146/97 H Blood Pressure [Right Arm] 146/97 H Blood Pressure Mean [Right Arm] 113 02 Sat by Pulse Oximetry 97 - Lab Data Lab Results 09/06/21 18:49: Urine Color Yellow, Urine Appearance Clear, Urine pH 6.5, Ur Specific [place] >= 1.030, Urine Protein Negative, Urine Glucose (UA) Negative, Urine Ketones Negative, Urine Blood Negative, Urine Nitrate Negative, Urine Bilirubin Negative, Urine Urobilinogen 0.2, Ur Leukocyte Esterase Negative Orders (Tests/Meds): ORDERS Category Date Time Status Covid-19 Nasal PCR ([facility]) Routine Lab 09/06/21 18:51 Received Wound Culture and Gram Stain Stat Micro 09/06/21 19:30 Received [facility] [place] - General Stated complaint: cough and runny nose Time Seen by Provider: 09/06/21 18:44 - History of Present Illness Provider Complaint: She states she has been exposed to covid-19 in her home and she has had a headache and body aches since this morning. She also states that she has she had a tummy tuck surgery done in [facility] on 08/15. She is worried about her incision. She states there is a small area in its center that has not healed and she is afraid it is getting infected. She states that she is unable to f/u with her surgeon in [place]. - Related Data Previous Rx's Medication Instructions Recorded ergocalciferol (vitamin D2) 1,250 50,000 unit PO QWEEK #12 cap 05/31/21 mcg (50,000 unit) capsule Mupirocin [Bactroban 2% Ointment 1 applicatio TP TID 7 Days #1 gm 09/06/21 22gm tube] Sulfamethoxazole/Trimethoprim 1 each PO BID 10 Days #20 tab 09/06/21 [Bactrim DS tablet] cephALEXin [cephALEXin 500mg 500 mg PO Q6H 10 Days #40 cap 09/06/21 capsule] Allergies Allergy/AdvReac Type Severity Reaction Status Date / Time No Known Allergies Allergy Verified 09/06/21 18:51 [facility] History - Hepatitis A Screen Attestation statement:: This patient has been screened for Hepatitis A risk factors. I have reviewed the patient's past medical history: Yes Other Surgeries: Yes: Amputation: No Fractures: No - Social History Smoking Status: Former smoker Tobacco Type: cigarettes # Packs/Day (cigarettes): 1 #Yrs smoked (if former smoker): 1 Alcohol Intake: never Alcohol Intake F
[2021-09-06 18:48] VITALS: BP 146/97; PULSE 76; RESP 17; TEMP 37.6; O2SAT 97; BMI 30.7
[2021-09-06 19:20] LABS: Apearance,Urine Clear (Clear); Color,Urine Yellow (Yellow); PH,Urine 6.5 (5.0-8.5)
[2021-09-06 19:21] LABS: Bilirubin,Urine Negative (Negative); Blood, Urine Negative (Negative); Glucose,Urine (UA) Negative (Negative); Ketones,Urine Negative (Negative); Protein,Urine Negative (Negative); Specific Gravity, Urine >= 1.030 (1.005-1.030); UTC Leukocyte Esterase,Urine Negative (Negative); UTC Nitrate,Urine Negative (Negative); Urobilinogen,Urine 0.2 EU/dl (0.2)
[2021-09-06 19:37] VITALS: BP 146/97; PULSE 76; RESP 17; TEMP 37.6
== END 2021-09-06 19:54 | disposition home or self-care (01) ==
PROVIDERS: Emergency Provider Nurse Practitioner Family; PCP Emergency Medicine
DX: U07.1 COVID-19 (principal); T81.49XA Infection following a procedure, other surgical site, initial encounter; B96.3 Hemophilus influenzae [H. influenzae] as the cause of diseases classified elsewhere; Z16.11 Resistance to penicillins; Z16.39 Resistance to other specified antimicrobial drug
CPT/HCPCS: 81003; 87070; 87077; 87186; 87205; 99212; C9803; G0463; U0003; U0005

== ENCOUNTER 2022-12-17 15:12 | Emergency (ER) | payer SELFPAY ==
[2022-12-17 15:13] VITALS: BP 189/83; PULSE 86; RESP 18; TEMP 37.2; O2SAT 95; BMI 32.7
--- NOTE | 2022-12-17 15:45 | EXP.UTC ---
Discharge Plan Disposition Patient Disposition: Home, Self-Care Condition: Good Prescriptions Prescriptions: New azithromycin [Zithromax] 250 mg tablet 250 mg PO UD DOSE PK Qty: 6 0RF Rx Instructions: Take two (2) tablets today, then one (1) tablet days #2 thru #5 prednisone [prednisone] 20 mg tablet 20 mg PO BID 3 Days Qty: 6 0RF benzonatate [benzonatate] 100 mg capsule 100 mg PO TIDP PRN (Reason: Cough) Qty: 30 0RF Referrals Follow up/Referrals: Darrell Giles MD [Primary Care Provider] - See instructions Activity Restrictions/Add. Instructions Additional Instructions/Restrictions: Drink plenty of fluids. Take tylenol or ibuprofen for pain or fever. Take the medications as directed. Follow up with your regular doctor. GO TO THE ER FOR ANY WORSENING SYMPTOMS Clinical Impressions Clinical Impression: Bronchitis, Acute viral syndrome Stand Alone Forms Stand Alone Forms: Work/School Release Instructions Patient Instructions: DI for Acute Bronchitis Discharge ED Provider: Robert Feldman [facility] General Stated complaint: exposed to strep sore throat Mode of Arrival: Ambulatory Source of Information: Patient Limitations: No Limitations Time Seen by Provider: 12/17/22 15:45 Description of Symptoms (Recalled from Triage Doc. by RN): sore thorat HEENT Symptoms (Recalled from RN notes): Yes Resp Symptoms (Recalled from RN notes): No Skin Symptoms (Recalled from RN notes): No MS Symptoms (Recalled from RN notes): No Functional Status (Recalled from RN notes): n/a History of Present Illness Provider Complaint: She states that she has had a sore throat for the past 2 days. Related Data Previous Rx's Medication Instructions Recorded azithromycin 250 mg tablet 250 mg PO UD DOSE PK #6 tabs 12/17/22 (Zithromax) benzonatate 100 mg capsule 100 mg PO TIDP PRN Cough #30 caps 12/17/22 prednisone 20 mg tablet 20 mg PO BID 3 days #6 tabs 12/17/22 Allergies Allergy/AdvReac Type Severity Reaction Status Date / Time No Known Allergies Allergy Verified 12/17/22 15:40 Worker's Comp Is this a Worker's Comp case?: No [facility] Disclaimer: The information contained in this section may have been updated after the patient was seen, as this information can be updated by other users. 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 ROS Obtained: Yes All systems reviewed & no additional complaints except as documented Constitutional Constitutional: Reports poor appetite Eyes Eyes: Reports system reviewed and no additional complaints, except as documented ENT Ears, Nose, Mouth, and Throat: Reports as per HPI Cardiovascular Cardiovascular: Reports system reviewed and no additional complaints, except as documented and Denies chest pain Respiratory Respiratory: Denies shortness of breath, Denies chest congestion, Reports cough, Denies stridor and Denies wheezing Gastrointestinal Gastrointestingal: Reports system reviewed and no additional complaints, except as documented; Denies abdominal pain, diarrhea or vomiting Musculoskeletal Musculoskeletal: Reports system reviewed and no additional complaints, except as documented and Denies arthralgias Integumentary/Breasts Skin/Breast: Reports system reviewed and no additional complaints, except as documented and Denies rash Neurologic Neurologic: Denies paresthesias Allergic/Immunologic Allergic/Immunologic: Denies wheezing Physical Exam General General appearance: alert and in no apparent distress Head Head exam: atraumatic, normocephalic and normal inspection Eye Eye exam: Present normal appearance, PERRL and EOMI ENT ENT exam: Present mucous membranes moist and normal exte
[2022-12-17 15:49] LABS: UTC Strep Screen (Rapid) Negative (Negative)
[2022-12-17 16:29] VITALS: BP 189/93; PULSE 86; RESP 18; TEMP 37.2; O2SAT 95
== END 2022-12-17 16:29 | disposition home or self-care (01) ==
PROVIDERS: Emergency Provider Nurse Practitioner Family; PCP Emergency Medicine
DX: U07.1 COVID-19 (principal); J20.9 Acute bronchitis, unspecified; Z87.891 Personal history of nicotine dependence
CPT/HCPCS: 87635; 87880; 99212; 99214; G0463

== ENCOUNTER 2024-07-21 08:17 | Emergency (ER) | payer SELFPAY ==
--- NOTE | 2024-07-21 08:18 | ECG_ITS ---
APPROVED REPORT Exam: Resting ECG HR:84 bpm ECG Measurements Heart Rate 84 AXES VT 154 P 40 QRSd 83 QRS 60 QT 359 T 73 QTc 400 Conclusion Sinus rhythm Electronically signed by : PARI RAPHAEL, 07/22/2024 18:34:24
[2024-07-21 08:24] VITALS: BP 146/101; PULSE 76; RESP 20; TEMP 36.8; O2SAT 100; BMI 32.9
[2024-07-21 09:00] VITALS: BP 132/78; PULSE 95; O2SAT 100
--- NOTE | 2024-07-21 09:02 | XR_ITS ---
FINAL REPORT CLINICAL HISTORY: RUL wheezing, soa COMPARISON: 06/21/2021 FINDINGS: No acute pulmonary density is evident. There is no evidence of effusion or other pleural disease. The mediastinum has a normal appearance. The cardiac silhouette is unremarkable. IMPRESSION: Unremarkable chest exam. Reviewed, Interpreted and Dictated by Lin Metz MD Transcribed by Rose Coker Authenticated and [facility]
[2024-07-21] MEDS: DEXAMETHASONE 4MG TABLET 10 MG PO (09:12)
[2024-07-21] MEDS: IPRATROPIUM/ALBUTEROL 3 ML NEB 9 ML IH (09:12)
--- NOTE | 2024-07-21 09:30 | HMH.EDCP ---
Discharge Plan Disposition Patient Disposition: Home, Self-Care Prescriptions Prescriptions: New albuterol sulfate 90 mcg/actuation HFA aerosol inhaler 2 inh inhalation Q4H PRN (Reason: shortness of breath or wheezing) Qty: 8.5 4RF prednisone 20 mg tablet 40 mg PO DAILY 5 Days Qty: 10 0RF No Action phentermine [Adipex-P] 37.5 mg tablet 37.5 mg PO DAILY Qty: 30 0RF Rx Instructions: must administer 30 minutes before or 1-2 hours after breakfast Referrals Follow up/Referrals: Provider,Referral, MD [Primary Care Provider] - See instructions Activity Restrictions/Add. Instructions Additional Instructions/Restrictions: Call your family doctor to establish care for this visit to the emergency department and schedule follow-up within 48 hours to ensure improvement. If you have any worsening of your condition or any other concerning signs or symptoms, return to the emergency department or your primary care doctor for further evaluation. Follow-up with your family doctor for refills on albuterol and formal pulmonary function testing. Be sure to take prednisone in the morning after waking up and not in the afternoon or before bed as it will not cause insomnia and vivid dreaming. Clinical Impressions Clinical Impression: Exacerbation of reactive airway disease, Bronchitis Print Language Print Language: Georgian Discharge ED Provider: Fabricio Hanson General Chief Complaint: Shortness of Breath/Dyspnea Stated Complaint: Chest Pain Time Seen by Provider: 07/21/24 08:21 Mode of Arrival: Ambulatory Source of Information: Patient Description of Symptoms (Recalled from ER Triage Doc. by RN): pt walked in wheezy complaining of shortness of breath and chest pain that started yesterday, pt is alox4 and vitals are stable pt states she has done this before and it typically happens when the weathers changes, pt takes no inhalers or anything at home for this History of Present Illness HPI narrative: Please note that above description of symptoms, in this electronic medical record under categorization of recalled from ER triage doctor by RN are reflective of an initial nursing assessment, however, is not reflective of my full history and physical exam that was personally taken and clarified. Consequentially, this preceding description of symptoms, which may include the patient's categorized chief complaint in the EMR, do not reflect my personal clinical impression, and the ultimate description of history of present illness and patient stated complaints should be deferred to this section of the note. Unless stated otherwise or congruent with this section of the note, additional signs, symptoms, or incongruence should be interpreted as inaccurate with my clinical impression. Related Data Previous Rx's ?Medication ?Instructions ?Recorded phentermine 37.5 mg tablet 37.5 mg PO DAILY #30 tabs 02/03/23 (Adipex-P) albuterol sulfate 90 mcg/actuation 2 inh inhalation Q4H PRN shortness 07/21/24 aerosol inhaler of breath or wheezing #8.5 grams prednisone 20 mg tablet 40 mg (2 x 20 mg) PO DAILY 5 days 07/21/24 #10 tabs Allergies Allergy/AdvReac Type Severity Reaction Status Date / Time No Known Allergies Allergy Verified 02/03/23 15:01 [facility] Disclaimer: The information contained in this section may have been updated after the patient was seen, as this information can be updated by other users. 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 Have you lived/traveled outside [place] in past 30 days?: No Contact w/someone who lives/traveled outside US past 30 days?: No Exposure to someone with infectious disease in past 14 days?: No Do you have a fever (greater than 100.4 F or 38 C)?: No Have you tested positive for COVID-19?: No Exposed to someone with COVID-19 in past 14 days?: No Do you have a sore throat?: No Do you have a cough?: Yes Do you have any weakness?: No Do you have any diarrhea?: No Are you experiencing any unusual bleeding?: No Do you have any muscle aches/pain?: No Do you have any abdominal pain?: No Are you experiencing loss of taste or smell?: No Other Medical History Have you received the Flu Vaccine for this season: No Have you received the Pneumonia Vaccine: No ROS Obtained: Yes All systems reviewed & no additional complaints except as documented Physical Exam General General appearance: alert Neck Neck exam: Present trachea midline Chest Chest inspection: Present normal inspection and symmetric chest wall rise Respiratory Respiratory exam: Present wheezes; Absent respiratory distress, stridor, accessory muscle use or prolonged expiratory phase Cardiovascular Cardiovascular exam: Present regular rate, normal rhythm and other (Pulses equal and symmetric in upper and lower extremities) Extremities Exam Extremities exam: Absent edema Neurological Exam Neurological exam: Present alert, oriented X3 and CN II-XII intact Skin Skin exam: Present warm and dry; Absent cyanosis, diaphoresis or pallor HEART Score HEART Score HEART Score assessment performed?: No Critical Care Critical Care Time Critical Care Time: No Medical Decision Making Medical Records Medical records reviewed: Yes I reviewed the patient's medical records. Galo Inquiry Pt receiving controlled substance: No Galo was queried for this patient: No Vital Signs Vital Signs: 07/21/24 08:24 07/21/24 09:00 Temperature 98.2 F Temperature Source Oral Pulse Rate 95 H Pulse Rate [Left Radial] 76 Respiratory Rate 20 Blood Pressure 132/78 Blood Pressure [Right Arm] 146/101 H Blood Pressure Mean [Right Arm] 116 02 Sat by Pulse Oximetry 100 100 Oxygen Delivery Method Room Air Room Air Response Orders (Tests/Meds): ED MEDICATIONS Discontinued Medications Generic Name Dose Route Start Last Admin Trade Name Demarcus PRN Reason Stop Dose Admin Albuterol/Ipratropium 9 ml 07/21/24 09:02 07/21/24 09:12 Ipratropium/Albuterol 3 Ml Neb IH 07/21/24 09:03 9 ml ONCE ONE Administration Dexamethasone 10 mg 07/21/24 09:02 07/21/24 09:12 Dexamethasone 4mg Tablet PO 07/21/24 09:03 10 mg ONCE ONE Administration ORDERS Category Date Time Status CXR 2 view (NOT portable) [XR chest 2V] Stat Exams 07/21/24 09:02 Completed MDM Narrative Medical Decision Narrative: 33-year-old female non-smoking presenting with shortness of breath. She states that she has a history of informally diagnosed asthma. Intermittently has exacerbations about once every other year. Last time was in 2022. States that she since yesterday was having shortness of breath cough and wheezing. Today, 07/21, states that she had trouble sleeping throughout the night due to the cough and wheezing, came in for further evaluation. No fevers or chills or systemic signs or symptoms, no sick contacts that she knows of, cough is nonproductive. History obtained with patient. On arrival, very clinically well. She is nontachypneic, nontachycardic, speaking in full sentences. She does have inspiratory wheezing heard throughout the precordium, but primarily in the right upper lobe anteriorly and posteriorly. No lower extremity edema, pulses equal and symmetric. Cardiac exam normal. Differential includes reactive airway disease exacerbation, pneumonia, bronchitis, less likely to be PE, dissection, among others. EKG obtained. On independent interpreted, sinus rhythm 84 bpm MI 154, QRS 83, QTc 400. No acute ischemic change and normal axis. Patient was given DuoNebs and steroids. Chest x-ray obtained. On independent interpretation,. Because patient at baseline without signs or symptoms of clinical decompensation, deemed appropriate for discharge. Results were relayed to patient who voiced understanding and were agreeable to outpatient management and follow up. I discussed my clinical impression with patient and answered all questions. At this time, the evidence for any other entities in the differential is insufficient to warrant any further testing or ED observation. This was explained as well. Advisory was given that persistent or worsening symptoms require further evaluation. I confirmed the understanding of this discussion. [employer] disclaimer Much of this encounter note is an electronic surfacer operator spoken language to printed text. Electronic surfacer operator of the spoken language may permit errors. Although I have reviewed the note, some errors may still exist.
[2024-07-21 10:00] VITALS: BP 144/93; PULSE 80; RESP 18; TEMP 36.8; O2SAT 95
== END 2024-07-21 10:13 | disposition home or self-care (01) ==
PROVIDERS: Emergency Provider Emergency Medicine
DX: R07.9 Chest pain, unspecified (principal); J45.901 Unspecified asthma with (acute) exacerbation; J20.9 Acute bronchitis, unspecified
CPT/HCPCS: 71046; 93005; 99284; J8540

== ENCOUNTER 2025-01-31 08:30 | Outpatient (CLI) | payer MEDICAID, SELFPAY ==
--- OUTSIDE RECORDS SUMMARY | 2024-12-27 11:04 | XMS_ITS | Continuity of Care Document ---
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 Worker Name Role Phone Adalberto MSN, AUTOMOTIVE ELECTRICAL HELPER, Charline Unavailable Unavai lable Allergies, Adverse Reactions, Alerts Substance Reaction Status Criticality No Known Allergies Active No Inform ation Medications Medication Instructions Dosage Effective Dates (start - stop) Status Comments FEXOFENADINE HYDROCHLORIDE 180MG TABLET TAKE ONE (1) TABLET BY ORAL ROUTE EVERY DAY - Active EZETIMIBE 10MG TABLET TAKE ONE (1) TABLE T BY ORAL ROUTE EVERY DAY - Active metformin ER 500 mg 24 hr tablet,extended release (gastric retention) take 1 tablet by oral route every day with the evening meal 500 MG - Active Flonase Allergy Relief 50 mcg/actuation nasal spray,suspension spray 1 - 2 spray by intranasal route every day in each nostril as needed 50-100 MCG - Active Advance Directives Directive Yes / No Effective Date File Name No Information Encounters Encounter Description Practice Location Reason(s) For Visit Diagnoses Date Provider [facility], [address] [place] [address], [id number], tel:[phone] [facility] [place] No Information Adalberto Olivier. [address], [place], [id number] , . tel:[phone] [facility], [place], [address], tel:[phone] [facility] [place] No Information May-0 5-202 5 [facility] Charline. [address], [place], [id number] , [place]. tel:[phone] [facility], [address] [place] [address], [facility], tel:[phone] [facility] [place] No Information 5 [address] Charline. [address], [place], [id number] , [place]. tel: [phone] [facility], [address] [place] [address], [facility], [place] tel:[phone] [facility] [place] follow up on labs (chief complaint) Body mass index [BMI] 34.0-34.9, adultEssential (primary) hypertensionHyperlipidem iaPrediabetesVitamin D deficiency, unspecified 4 [facility] Charline. [address], [place], [id number] , [place]. tel: [phone] [facility], [address] [place] [address], [facility], [place] tel:[phone] [facility] [place] FASTING LABS (chief complaint) Essential (primary) hypertension 4 [place] Charline. [address], [place], [id number] , [place]. tel: [phone] [facility], [address] [place] [address], [facility], [place] tel:[phone] [facility] [place] Follow up on Labs (chief complaint) Body mass index [BMI] 34.0-34.9, adultEssential (primary) hypertensionPrediabetesH yperlipidemiaVitamin D deficiency, unspecifiedHyperinsulini sm 4 [place] Charline. [address], [place], [id number] , [place]. tel: [phone] [facility], [address] [place] [address], [facility], tel:[phone] [facility] [place] FASTING LABS (chief complaint)B P CHECK (chief complaint) Essential (primary) hypertension 4 Adalberto Olivier. [address] [place] [address], [id number] , . tel: [phone] [facility], [address] [place] [address], [facility], tel:[phone] [facility] depression screening (chief complaint)P RAPARE (chief complaint)n ew to establish (chief complaint) Low incomeInsufficient social insurance and welfare supportEncounter for screening for depressionBody mass index [BMI] 35.0-35.9, adultEssential (primary) hypertensionAbnormal weight gainFatigue 4 Adalberto Olivier. [address] [place] [address], [id number] , . tel: [phone] Family History Family Member Type Diagnosis Age At Onset Daughter Problem Allergies Brother Problem Alive and well Mother Problem Diabetes mellitus Son Problem Alive and well Maternal grandmother Problem HEART ISSUES Father Problem Alive and well Paternal grandfather Problem Alive and well Paternal grandmother Problem (finding) Son Problem Alive and well Sister Problem Alive and well Maternal grandfather Problem Alive and well Maternal grandmother Problem Diabetes mellitus Brother Problem Alive and well Daughter Problem Alive and well Mother Problem Alive and well Daughter Problem Asthma Daughter Problem Alive and well Mother Problem A-FIB, COPD, SLEEP APNEA Immunizations Vaccine Date Status Comments Influenza virus vaccine, trivalent (IIV3), split virus, preservative free, 0.5 mL dosage, for intramuscular use administered Source: Ne w Immunization Record COVID-19 mRNA (MOD) administered Source: Other Registry COVID-19 mRNA (MOD) administered Source: Other Registry Influenza Quad Inj administered Source: O ther Registry Influenza Quad Inj administered Source: O ther Registry Tdap, Adsorbed administered Source: Other Registry Tdap, Adsorbed administered Source: Other Registry Influenza, P-Free administered Source: Ot her Registry HPV4 (Gardasil) administered Source: Othe r Registry HPV4 (Gardasil) administered Source: Othe r Registry Hep B, ped/adol administered Source: Othe r Registry Hep B, ped/adol administered Source: Othe r Registry Hep B, ped/adol administered Source: Othe r Registry Td (adult), adsorbed administered Source: Other Registry Hep B, ped/adol administered Source: Othe r Registry Td (adult), adsorbed administered Source: Other Registry Hep B, ped/adol administered Source: Othe r Registry MMR administered Source: Other R egistry Hep B, ped/adol administered Source: Othe r Registry MMR administered Source: Other R egistry Payers Payer name Insurance type Covered democrat ID Authoriza tijasmin(s) Hch- Covered Under [employer] CI [id number] Hch- Covered Under [employer] CI [id number] Social History Type Description Quantity Date Captured Comments Sex Female Smoking Status No Information Sexual Orientation Straight or heterosexual July Gender Identity Female Chief Complaint And Reason For Visit No Information Plan Of Treatment Date Type Action Status Goal Influenza vaccine. Due on Oc due Goal CBC. Due on due Goal CMP. Due on due Goal Vitamin D. Due on due Goal Hepatitis C Screening due Goal Lipid panel. Due on 031 due Goal TSH. Due on due Goal PAP. Due on due Goal HIV screen due Goal Drug Abuse Screening Test (D AST-10). Due on due Goal Obtain Height, Weight, and B UT. Due on due Goal Diabetes screening. Due on due Goal Tobacco Use Screening. Due o n due Goal Tobacco Use Cessation Counse ling. Due on due Goal HPV. Due on due Goal Depression screening. Due on due Goal Generalized Anxi ety Disorder - 7 (KASSIDY-7). Due on due Goal Follow up Plan f or abnormal BMI (Less than 18.5, greater than 25). Due on due Goal Pap/HPV testing. Due on due Goal HPV testing. Due on due Goal Unhealthy drug use screening due Goal Vitamin B12. Due on due Goal Urinalysis due Goal ECG. Due on due Goal Obtain blood Pressure. Due o n due Goal Lifestyle education regardin g diet completed Goal Generalized Anxi ety Disorder - 7 (KASSIDY-7). Due on due Goal Diabetes screening. Due on due Goal Influenza vaccine. Due on due Goal Pap/HPV testing. Due on due Goal Hepatitis C Screening due Goal Unhealthy drug use screening due Goal CBC. Due on due Goal Lipid panel. Due on due Goal Tobacco Use Cessation Counse ling. Due on due Goal Vitamin B12. Due on due Goal PAP. Due on due Goal Obtain Height, Weight, and B UT. Due on due Goal CMP. Due on due Goal Tobacco Use Screening. Due o n due Goal TSH. Due on due Goal Vitamin D. Due on due Goal HIV screen due Goal Follow up Plan f or abnormal BMI (Less than 18.5, greater than 25). Due on due Goal Drug Abuse Screening Test (D AST-10). Due on due Goal HPV. Due on due Goal HPV testing. Due on due Goal Depression screening. Due on due Goal Obtain blood Pressure. Due o n due Goal Urinalysis. Due on due Goal ECG. Due on due Goal Generalized Anxi ety Disorder - 7 (KASSIDY-7). Due on due Goal Tobacco Use Screening. Due o n due Goal Drug Abuse Screening Test (D AST-10). Due on due Goal Vitamin D. Due on due Goal Lipid panel. Due on due Goal Follow up Plan f or abnormal BMI (Less than 18.5, greater than 25). Due on due Goal HPV. Due on due Goal HPV testing. Due on due Goal Vitamin B12. Due on due Goal Depression screening. Due on due Goal TSH. Due on due Goal CMP. Due on due Goal Hepatitis C Screening due Goal Unhealthy drug use screening due Goal PAP. Due on due Goal HIV screen due Goal CBC. Due on due Goal Obtain Height, Weight, and B UT. Due on due Goal Pap/HPV testing. Due on due Goal Diabetes screening. Due on due Goal Urinalysis. Due on due Goal Obtain blood Pressure. Due o n due Goal ECG. Due on due Goal Lifestyle education regardin g diet completed Goal HIV screen due Goal Influenza vaccine. Due on due Goal CMP. Due on due Goal Diabetes screening. Due on due Goal Pap/HPV testing. Due on due Goal Tobacco Use Cessation Counse ling. Due on due Goal HPV testing. Due on due Goal Lipid panel. Due on due Goal Vitamin D. Due on due Goal Tobacco Use Screening. Due o n due Goal TSH. Due on due Goal PAP. Due on due Goal Drug Abuse Screening Test (D AST-10). Due on due Goal Follow up Plan f or abnormal BMI (Less than 18.5, greater than 25). Due on due Goal Depression screening. Due on due Goal Generalized Anxi ety Disorder - 7 (KASSIDY-7). Due on due Goal Hepatitis C Screening due Goal HPV. Due on due Goal Obtain Height, Weight, and B UT. Due on due Goal CBC. Due on due Goal Unhealthy drug use screening due Goal Vitamin B12. Due on due Goal Obtain blood Pressure. Due o n due Goal Urinalysis. Due on due Goal ECG. Due on due Goal HIV screen due Goal CMP. Due on due Goal Diabetes screening. Due on due Goal Pap/HPV testing. Due on due Goal HPV testing. Due on due Goal Lipid panel. Due on 031 due Goal Vitamin D. Due on due Goal Tobacco Use Screening. Due o n due Goal TSH. Due on due Goal PAP. Due on due Goal Drug Abuse Screening Test (D AST-10). Due on due Goal Follow up Plan f or abnormal BMI (Less than 18.5, greater than 25). Due on due Goal Depression screening. Due on due Goal Generalized Anxi ety Disorder - 7 (KASSIDY-7). Due on due Goal Hepatitis C Screening due Goal HPV. Due on due Goal Obtain Height, Weight, and B UT. Due on due Goal CBC. Due on due Goal Unhealthy drug use screening due Goal Vitamin B12. Due on 025 due Goal Obtain blood Pressure. Due o n due Goal Urinalysis. Due on 24 due Goal ECG. Due on due Goal Lifestyle education regardin g diet completed History Of Present Illness Encounter Date Complaint History Of Prese nt Illness follow up on labs Nika is here this morning to follow up on recent lab results.A1c 5.9, Insulin 16.3, Glucose 104DHEA 131.0, Estraidol 39.9, FSH 5.7, LH 7.8, Free testosterone 1.1, testosterone 32, Progesterin 3.4All wnlTSH 1.730HLD: Total 161HDL 31, LDL 91, Trigs 227Iron studies wnlVit D remains low 14.9Started zetia, metformin, however did not continue the metformin. and only sometimes w/ the zeitiastates that metformin she was taking in the am, not with food, and every other day.She states she was taking zeita for about 1 monthRTC 3 months fasting labsPt to call back in 2 weeks to report if taking Metfromin at night w/ evening meal is better and she can tolerate it. FASTING LABS NIKA IS HERE T HIS MORNING FOR FASTING LABS. SUCCESSFULLY COLLECTED 3 TUBES. PT TOLERATED WELL. PT IS SCHEDULED TO RTC IN 1 WEEK TO FOLLOW UP ON LAB RESULTS. Follow up on Labs Nika is here today to follow up on lab results.A1c is 6.0,Vit D 14Insulin levels high 22.4 GlucoseMother has hx of DMTrigs 293, HLD 36LDL 28, and total 159Likely some metabolic syndrome, pre diabetes.Pre DM pt educational handouts givenDiscussed diet modification and increasing physical activity. She voiced understanding.BP slightly elevated today 128/78Discussed low sodium dietWill start Metfromin ER- as she has taken Metformin in past - Gestational DM- and it was bothersome to her GI systemShe will also be started on zetia- for her elevated triglycerides and familial hx of HLD.Diet modifications again discussed in length to eliminate fried, greasy, fatty foods. She voices she has already started these changes about 1 month ago. BP CHECK NIKA IS HERE T HIS MORNING FOR A BP CHECK. PT'S BLOOD PRESSURE THIS MORNING IS 113/76 IN RIGHT ARM WHILE SITTING. FASTING LABS NIKA IS HERE T [place] TO HAVE FASTING LABS. SUCCESSFULLY COLLECTED 4 TUBES, PT TOLERATED WELL. PT IS SCHEDULED TO RTC IN 2 WEEKS TO FOLLOW UP ON LAB RESULTS. new to establish Nika is here today to establish care.In need of a checkup and blood work.She states that she is having swelling in bilateral ankles all the time.Has gained a lot of weight. - hard to lose it. Keeps gaining over the past 3 weeks.Feels fatigue. Periods are irregular and long. Sometime bleeds a lot, and sometimes hardly at all- menarch age 14.Has been on adipex before, and helped - this was at Dr. Giles's office- [place].Diet- for past 2 weeks eats lots of fruits and vegetables, saladsHas cut out a lot of breads- tortillas- for 2 weekssome protien- chicken mostlySoda- all the time, but now only 2-3 (mini- cans) a weekJog and walk every dayactive at work- waling the grounds, doing toursSleeps ok- has routine to sleep at 10, gets up at 6 amFalls right to sleepStays asleepSnores- when exausted wakes with headachesMigraines- lasts for a whole day or lessabout 2 x a monthLast eye exam- 1 year ago- okMarcell- seasonal- tried claritin, switched benadryl. not workedsinus congestion x 1 month, past 2 weeks worse, now in chest, productive cough. depression screening Depression screening completed on 07/22/2023. Patient scored a 0.-KB,CM PRAPARE WILLISE complete d on 07/22/2023.-KB,CM Instructions Date Instruction Additional Infor mation Physical activity as tolerated. Try to engage in some form of moderate physical activity for 30 minutes most days of the week. May modify activity as needed to reduce discomfort. Try to achieve/maintain a healthy body weight to reduce strain on musculoskeletal system. Verbalizes an understanding. Related to Body mass index [BMI] 34.0-34.9, adult 15 minutes of sun ex posure daily to naturally raise vitamin D levels Related to Vitamin D deficiency, unspecified Low fat, low cholest parmjit diet. Avoid fatty, fried, and greasy foods. Physical activity as tolerated. Counseled on risks of associated comorbidities, such as heart disease and stroke. Encouraged avoidance of tobacco products. Related to Hyperlipidemia Patient educated on the importance of maintaining glycemic control. Counseled on diet, exercise and other lifestyle factors that can impact glucose control. Instructed on the importance of taking all medications as prescribed. Patient aware of the importance of diabetic eye exams, dental check ups, foot exams and diabetic foot care. Patient verbalized understanding. Related to Prediabetes Patient currently do ing well. BP in goal range. No medication changes. Patient instructed to follow a low salt diet, continuing taking blood pressure medications as prescribed. Keep routine follow up with clinic. Related to Essential (primary) hypertension Giving encouragement to exercise Related to Body mass index [BMI] 34.0-34.9, adult Lifestyle education regarding di et Related to Body mass index [BMI] 34.0-34.9, adult Physical activity as tolerated. Try to engage in some form of moderate physical activity for 30 minutes most days of the week. May modify activity as needed to reduce discomfort. Try to achieve/maintain a healthy body weight to reduce strain on musculoskeletal system. Verbalizes an understanding. Related to Body mass index [BMI] 34.0-34.9, adult 15 minutes of sun ex posure daily to naturally raise vitamin D levelsStart taking weekly supplementation Related to Vitamin D deficiency, unspecified Low fat, low cholest parmjit diet. Avoid fatty, fried, and greasy foods. Physical activity as tolerated. Counseled on risks of associated comorbidities, such as heart disease and stroke. Encouraged avoidance of tobacco products. Related to Hyperlipidemia Patient educated on the importance of maintaining glycemic control. Counseled on diet, exercise and other lifestyle factors that can impact glucose control. Instructed on the importance of taking all medications as prescribed. Patient aware of the importance of diabetic eye exams, dental check ups, foot exams and diabetic foot care. Patient verbalized understanding. Starting Metformin today. Related to Prediabetes Patient currently do ing well. BP in goal range. No medications at this time. Diet modifications discussed. Patient instructed to follow a low salt diet. Keep routine follow up with clinic. Related to Essential (primary) hypertension Giving encouragement to exercise Related to Body mass index [BMI] 34.0-34.9, adult Lifestyle education regarding di et Related to Body mass index [BMI] 34.0-34.9, adult Physical activity as tolerated. Try to engage in some form of moderate physical activity for 30 minutes most days of the week. May modify activity as needed to reduce discomfort. Try to achieve/maintain a healthy body weight to reduce strain on musculoskeletal system. Verbalizes an understanding. Related to Body mass index [BMI] 35.0-35.9, adult Counseled on importa nce of sleep hygiene. Maintain a consistent sleep schedule. Avoid caffeine for at least 6 hours prior to bed. Limit screen time (TV, phone, video games) before bed. Make sure bedroom is cool and dark, which improves sleep quality. If taking medications to help with insomnia, try to take at least 30 minutes before goal bed time. Do not smoke or drink alcohol just before bedtime. Got to bed and get up at the same time daily. Related to Fatigue Dietary Instructions for a healthy weight: BMI should be between the range of 18.5-24.9 for an adult; and Caloric intake should be around 5868-6946 for a female, and 5511-0293 for an adult male. Fiber intake should be about 14 grams for 1000 calories per day. That is about 20-30 grams daily. Good sources of fiber are oatmeal, fortified grains, and green leafy vegetables, apples. You can also use Carbohydrate counting to maintain a healthy weight. One serving is equal to 15 grams (1 piece of bread, small fruit, or 1 cup of milk). Men should have 45-75, Women about 30-65 per meal, and snacks are recommend to be 13-30 grams each. K[employer]Vennli is a good source for meal planning and dietary education. You may also refer to the [place] [employer] website for further low sodium, health heart diet information. Mediterainian diet would be a suitable diet for your current health conditions. Related to Abnormal weight gain Patient instructed o f the importance of following a low salt diet as well as getting physical activity as tolerated. Patient advised to keep BP log daily checking each morning and before bed. Patient to call the clinic if systolic blood pressure is greater than 150 and/or diastolic blood pressure is staying greater than 90.BP not too elevated today, but higher than normal. 127/87 Related to Essential (primary) hypertension Giving encouragement to exercise Related to Body mass index [BMI] 35.0-35.9, adult Lifestyle education regarding di et Related to Body mass index [BMI] 35.0-35.9, adult Assessments Type Assessment Date No Information
--- NOTE | 2025-01-31 08:33 | US_ITS ---
PROCEDURE INFORMATION: Exam: US Left Breast, Complete US Right Breast, Complete Exam date and time: 01/31/2025 8:38 AM Age: 34 years old Clinical indication: Left; Pain only; Breast pain; Additional info: Breast lump TECHNIQUE: Imaging protocol: Complete ultrasound of all four quadrants of the left breast and the retroareolar regions, including ultrasound of the axilla when performed. Complete ultrasound of all four quadrants of the right breast and the retroareolar regions, including ultrasound of the axilla when performed. COMPARISON: No relevant prior studies available. FINDINGS: ULTRASOUND: Breast ultrasound findings: Sonographic images of both breasts including the retroareolar regions, all 4 quadrants and the axilla do not demonstrate any solid masses. Minimal subcentimeter cystic change is present in the right breast. Perseris were placed over normal fibroglandular structures in the left 2 o'clock axis 5 cm from the nipple No architectural distortion or acoustical shadowing. IMPRESSION: No sonographic evidence of malignancy. The clinical statement states a breast lump. If there is palpable abnormality, patient should return for a diagnostic mammogram for further evaluation. In the absence of suspicious clinical findings, annual bilateral mammographic screening is recommended to commence at the age of 40 ASSESSMENT: BI-RADS Category 2: Benign.
--- OUTSIDE RECORDS SUMMARY | 2025-01-31 08:46 | XMS_ITS | Clinical Summary ---
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 1 inhaler 06/30/2016 Active fluticasone (FLONASE) 50 MCG/ACT nasal spray 2 sprays into each nostril Daily. 1 bottle 05/15/2017 Active Active Problems No known active problems Social History Tobacco Use Types Packs/Day Years Used Date Smoking Tobacco: Every Day Cigarettes Tobacco Cessation:Ready to Q uit: No; Counseling Given: Yes Alcohol Use Standard Drinks/Week Comments No 0 (1 standard drink = 0.6 oz pur e alcohol) Abuse Screen Answer Date Recorded Unsafe at Home or Work/School Not on file Feels Threatened by Someone? Not on file 01/2023 Does Anyone Keep You from Co ntacting Others or Doint Things Outside the Home? Not on file 12/11/2022 Physical Sign of Abuse Present Not on file 1 Housing Stability Answer Date Recorded Current Living Arrangements Not on file 12/01 Potentially Unsafe Housing Conditions Not on margaret e 12/11/2022 Family and Community Support Answer Raman e Recorded Help with Day-to-Day Activities Not on file 12/11/2022 Lonely or Isolated Not on file 12/11/2022 Employment Answer Date Recorded Do you want help finding or keeping work or a marlo b? Not on file 12/11/2022 Disabilities Answer Date Recorded Concentrating, Remembering, or Making Decisions Difficulty Not on file 12/11/2022 Doing Errands Independently Difficulty Not on fi le 12/11/2022 Education Answer Date Recorded Help with school or training? Not on file Preferred Language Not on file 12/11/2022 Comments Unknown Sex and Gender Information Value Date Recorded Sex Assigned at Not on file Legal Sex Female 1:29 PM EDT Gender Identity Not on file Sexual Orientation Not on file Last Filed Vital Signs Vital Sign Reading Time Taken Comments Blood Pressure 133/72 03/12/2017 7:26 PM EST Pulse 80 05/15/2017 6:45 PM EDT Temperature 37.5 C (99.5 F) 05/15/2017 6:45 PM EDT Respiratory Rate 20 05/15/2017 6:45 PM EDT Oxygen Saturation 98% 05/15/2017 6:45 PM EDT Inhaled Oxygen Concentration - - Weight 69.9 kg (154 lb 3.2 oz) 05/15/2017 6:45 P M EDT Height 157.5 cm (5' 2 ) 05/15/2017 6:45 PM EDT Body Mass Index 28.2 05/15/2017 6:45 PM EDT Plan of Treatment Health Maintenance Due Date Last Done Comments Annual Gynecologic Pelvic an d Breast Exam 1990 ANNUAL PHYSICAL 06/30/2016 HEPATITIS C SCREENING 06/30/2016 INFLUENZA VACCINE 10/01/2024 11/22/2019, 03/13/2012 TDAP/TD VACCINES (3 - Td or Tdap) 10/31/2029 11/01/2019, 07/07/2002 Pneumococcal Vaccine 0-49 Aged Out No longer eligible based on patient's age to complete this topic Care Teams Track Vehicle Repairer Relationship Specialty Start Date End Date Provider, No Known [facility] [place] [address] PCP - General 06/30/16
--- OUTSIDE RECORDS SUMMARY | 2025-01-31 08:46 | XMS_ITS ---
Author Organization Unknown ENCOUNTERS Encounter Performer Location Date Diagnosis Diagnosis Status Emergency [facility] [address] [facility] [address] [place] [address] [id number] JIM Pre Admit [facility] [address] [facility] [address] [place] [address] [id number] Emergency [facility] [address] [facility] [address] [place] [address] [id number] JIM Pre Admit [facility] [address] [facility] [address] [facility] [place] [address] [id number] Emergency [address] [place] [address] [id number] JIM Emergency [facility] [address] [facility] [address] [place] [address] [id number] JIM Emergency [facility] [address] [facility] [address] [place] [address] [id number] JIM Emergency [facility] [address] [facility] [address] [facility] [place] [address] [id number] JIM Emergency [address] [place] [address] [id number] JIM *Note: Encounters from your own facility or health system may be excluded. Allergies, Adverse Reactions, Alerts Allergen Type Severity Identification Date Medications Name Date Quantity Days Supplied [facility] Number
--- OUTSIDE RECORDS SUMMARY | 2025-01-31 08:46 | XMS_ITS | Clinical Summary ---
Author Organization [facility] Address [address] [place] [address] Care Team Providers Care Traveling Nurse Name Role Phone Nika Giron MD Primary Care Provider [phone] Allergies No known active allergies Medications No known medications Active Problems No known active problems Immunizations Immunization Administration Dates Next Due Influenza, injectable, quadrivalent, preservativ e free 11/22/2019 Influenza, seasonal, injectable, preservative fr ee 03/13/2012 Tdap 11/01/2019 Family History Medical History Relation Name Comments Diabetes Maternal Grandmother Breast cancer Neg Hx Colon cancer Neg Hx Ovarian cancer Neg Hx Uterine cancer Neg Hx Relation Name Status Comments Maternal Grandmother Social History Tobacco Use Types Packs/Day Years Used Date Smoking Tobacco: Never Smokeless Tobacco: Never Tobacco Cessation:Counseling Given: Not Answered Alcohol Use Standard Drinks/Week Comments No 0 (1 standard drink = 0.6 oz pure alcohol) Alcoholic Drinks/day: Never Drank Alcohol Comments No Sex and Gender Information Value Date Recorded Sex Assigned at Not on file Legal Sex Female 7:43 PM EDT Gender Identity Not on file Sexual Orientation Not on file Last Filed Vital Signs Vital Sign Reading Time Taken Comments Blood Pressure 115/79 11/22/2022 10:41 AM EDT Pulse 79 11/22/2022 10:41 AM EDT Temperature - - Respiratory Rate 18 11/22/2022 10:41 AM EDT Oxygen Saturation 96% 11/22/2022 10:41 AM EDT Inhaled Oxygen Concentration - - Weight 81.3 kg (179 lb 3.7 oz) 11/22/2022 10:41 AM EDT Height 157.5 cm (5' 2 ) 11/22/2022 10:41 AM EDT Body Mass Index 32.78 11/22/2022 10:41 AM EDT Plan of Treatment Health Maintenance Due Date Last Done Comments [facility]-Depression Screening 1990 [facility]-/Child/Adol SDOH Screenings 1990 [facility]-Varicella Vaccines (1 of 2 - 13+ 2-dose series) 08/30/2003 [facility]- SDOH Screenings 2008 [facility]-Adult SDOH Screenings 2008 HPV Vaccines (2 - 3-dose series) 05/04/2010 04/06/2010 [id number] Vaccine (3 - season) 2024 10/06/2020, 09/08/2020 [facility]-Influenza Vaccine (#1) 2024 11/22/2019, [facility]-Pap Smear 11/22/2025 11/22/2022, 06/02, 07/06/2014, Additional history exists [facility]-Cervical Cancer Screening 11/23/2027 [facility]-HPV/Cotest 11/23/2027 11/22/2022, 06/02, 06/28/2019, Additional history exists [facility]-DTaP,Tdap,and Td Vaccines (3 - Td or Tdap) 10/31/2029 11/01/2019, 07/07/2002 [facility]-Zoster Vaccines (1 of 2) 2040 [facility]-Hepatitis B Vaccines Completed 003, 07/07/2002, 06/07/2002 [facility]-HIV Screening Completed 05/31/2019 [facility]-Hepatitis C Screening Completed 05/31/2019 [facility]-Obesity Intervention Completed 11/22/2022 [facility]-HIB Vaccines Aged Out No longer e ligible based on patient's age to complete this topic [facility]-Hepatitis A Vaccines Aged Out No longer eligible based on patient's age to complete this topic [facility]-IPV Vaccines Aged Out No longer e ligible based on patient's age to complete this topic [facility]-Pneumococcal Vaccine: Pediatrics (0 to 5 Years) and At-Risk Patients (6 to 49 Years) Aged Out No longer eligible based on patient's age to complete this topic [facility]-Rotavirus Vaccines Aged Out No lo nger eligible based on patient's age to complete this topic Procedures Procedure Name Priority Date/Time Associated Diagnosis Comments PAP TEST - CYTOLOGY Routine 11/22/2022 1 1:30 AM EDT Well woman exam with routine gynecological exam HEPATITIS C ANTIBODY W/REFLEX TO HCV QUANT PCR Routine 05/31/2019 3:29 PM EDT HIV 1/2 ANTIBODY/ANTIGEN SCREEN WITH REFLEX TO HIV I/II DIFFERENTIATION Routine 05/31/2019 3:29 PM EDT from Last 3 Months or Most Recently Relevant to Health Maintenance Results * Pap Test (11/22/2022 11:30 AM EDT) Case Report Cytology Case: [id number] Authorizing Provider: Danika Ibarra MD Collected: 11/22/2022 1130 Ordering Location: Medical Office Building Received: 11/22/2022 1134 Obstetrics and Gynecology First Screen: Sabrina Orozco Rescreen: Genoveva Turner Specimen: ThinPrep Pap Test, Liquid-Based Cervical/Vaginal 11/29/2022 1:04 PM EDT [facility] Interpretation NEGATIVE FOR INTRAEPITHELIAL LESION OR MALIGNANCY 11/29/2022 1:04 PM EDT [facility] at 1304 EDT Specimen Adequacy Satisfactory for evaluation; endocervical/almanzar sformation zone component absent/insufficie nt. Slide scanned and imaged by ThinPrep Imaging System with manual review of all selected avery. 11/29/2022 1:04 PM EDT [facility] Cervical cytology is a screening test primarily for squamous cancers and precursors and has associated false negative and positive results. New technologies such as liquid based sampling may decrease but will not eliminate all false negative results. Regular screening and follow-up of unexplained clinical signs and symptoms are recommended to minimize false negative results. Please see the ASCCP website (www.asccp.org)fo r followup recommendations. If HPV testing was requested, correlation with the results is suggested (please call Microbiology at [phone] for results). 11/29/2022 1:04 PM EDT [facility] Menstrual Status Cyclic 11/30/19 1:04 PM EDT [facility] Contraceptive History Not Applicable 11/29/2022 1:04 PM EDT [facility] Screening Type Routine Screen 2022 1:[address] [facility] High Risk? No 11/29/2022 1:[address] [facility] HPV Testing Requested? Request HPV Testing Regardless of Pap Test Findings 11/29/2022 1:[address] [facility] Previous Cancer History No 11/29/2022 1:[address] [facility] Clinical Information Z01.419 - Well woman exam with routine gynecological exam [ICD-10-CM] 11/29/2022 1:[address] [facility] Last Menstrual Period 11/11/2022 11/29/2022 1:[address] [facility] Swab Vaginal and cervical cytologic material / Unknown Non-blood Collection / Unknown 11/22/2022 11:30 AM EDT 11/22/2022 11:34 AM EDT Danika Ibarra MD LAB CYTOLOGY ORDERABLES Final R esult Performing Organization Address City/[facility]/ZIP Co de Phone Number [facility] [address] [place] [address] * HIV 1 & 2 Antibody/Antigen Screen (05/31/2019 3:29 PM EDT) HIV 1 Result NONREACTIVE Screening for HIV 1 and 2 antibodies is NONREACTIVE. No confirmatory testing is required. [facility] 05/31/2019 3:29 PM EDT 05/31/2019 5:58 PM EDT Otoniel Knott MD LAB BLOOD ORDERABLES Final Res ult [facility] * Hepatitis C Antibody (05/31/2019 3:29 PM EDT) Hepatitis C Antibody NEGATIVE Reference Range: Negative [facility] 05/31/2019 3:29 PM EDT 05/31/2019 5:58 PM EDT us Otoniel Knott MD LAB BLOOD ORDERABLES Final Res ult [facility] from Last 3 Months or Most Recently Relevant to Health Maintenance Care Teams Traveling Nurse Relationship Specialty Start Date End Date Nika Giron MD [address] [place] [address] PCP - General 07/14/20
== END 2025-01-31 23:59 | disposition home or self-care (01) ==
LOC: RAD 08:30
PROVIDERS: PCP Nurse Practitioner; Visit Provider Nurse Practitioner
DX: N63.0 Unspecified lump in unspecified breast (principal); N64.4 Mastodynia
CPT/HCPCS: 76641